=== PATIENT | female | born 1960 | race Caucasian/White ===

== ENCOUNTER 2024-06-19 14:13 | Emergency (ER) | payer MEDICARE, OTHER, SELFPAY ==
[2024-06-19] VITALS (11 sets, daily range): BP systolic 130–172; BP diastolic 77–110; PULSE 65–119; RESP 14–20; TEMP 36.5–36.9; O2SAT 26–99; BMI 23.6
--- NOTE | 2024-06-19 14:26 | ED.RN ---
CONSULTED WITH DR SARABIA REGARDING PT HITTING HEAD, NO BLOOD THINNERS, NO VISIBLE BRUISING OR SWELLING. XRAY OF ARM ONLY AT THIS TIME.
--- NOTE | 2024-06-19 14:35 | RAD_ITS ---
STUDY: X-RAY - RIGHT RADIUS AND ULNA REASON FOR EXAM: Female, 63 years old. FALL, PAIN TECHNIQUE: 2 view(s) of the forearm. COMPARISON: None. FINDINGS: There is no demonstrated soft tissue swelling. Normal visualized radius. Acute nondisplaced oblique fracture of the proximal ulna just distal to the olecranon. RAD/Forearm 2 Views IMPRESSION: Acute nondisplaced oblique fracture of the proximal ulna just distal to the olecranon. Electronically Signed: Vaibhav Mancini MD at 15:14 EST ,
--- NOTE | 2024-06-19 14:35 | RAD_ITS ---
STUDY: X-RAY - RIGHT ELBOW REASON FOR EXAM: Female, 63 years old. FALL, PAIN TECHNIQUE: 2 view(s) of the elbow. COMPARISON: None. FINDINGS: Acute nondisplaced oblique fracture of the proximal ulna just distal to the olecranon. Posterior dislocation of the radiocapitellar joint. The soft tissue structures are unremarkable. RAD/Elbow 2 Views IMPRESSION: Acute nondisplaced oblique fracture of the proximal ulna just distal to the olecranon. Posterior dislocation of the radiocapitellar joint. Electronically Signed: Vaibhav Mancini MD at 15:11 EST ,
--- NOTE | 2024-06-19 14:47 | ED.RN ---
PT XRAY RESULTS PRELIMINARY FROM RADIOLOGY RECIEVED, PT SHANT UPDATED.
--- NOTE | 2024-06-19 15:35 | EDS_ITS ---
HPI History of Present Illness Chief Complaint: Upper Extremity Injury Informant: patient Narrative Narrative: Mechanical fall right elbow injury. Patient [id number]. States came down from [place] to purchase a dog. Fell on concrete when she tripped. He hit her head. No loss conscious. No anticoagulation medications. Now in pain in left wrist. Knee abrasions. Able to ambulate. She follows an orthopedist back home. PFSH PFSH Home Medications ?Medication ?Instructions ?Recorded ?Last Taken ?Type docusate sodium 100 mg capsule 100 mg PO BID #60 caps 06/19/24 Unknown Rx (Colace) oxycodone-acetaminophen 5 mg-325 1 tab PO Q6H PRN PRN Pain 5 days 06/19/24 Unknown Rx mg tablet #20 TABLETS Allergy/AdvReac Type Severity Reaction Status Date / Time No Known Allergies Allergy Verified 06/19/24 14:17 Surgical History H/O tubal ligation Social History Smoking Status: Never smoker ROS ROS ED Constitutional Constitutional ED: Denies chills, fever(s) or sweats ENT ENT ED: Denies sore throat Cardiovascular Cardiovascular: Denies chest pain, leg edema, palpitations or racing heartbeat Respiratory/Chest Respiratory/Chest: Denies cough, dyspnea or dyspnea on exertion Gastrointestinal Gastrointestinal: Denies abdominal pain, diarrhea, nausea or vomiting Genitourinary Genitourinary ED: Denies dysuria, hematuria or urinary frequency Musculoskeletal Musculoskeletal: Reports extremity pain and other Details: Right elbow, left wrist pain ; Denies back pain or neck pain Integumentary Denies rash or wounds Neurologic Neurologic: Reports headache(s); Denies paresthesias or weakness EXAM Physical Exam Const Vital Signs: 06/19/24 14:17 06/19/24 14:46 06/19/24 15:29 Temperature 97.7 F L Temperature Source Oral Pulse Rate 72 70 Respiratory Rate 16 14 Respiratory Effort Normal Respiratory Depth Normal Respiratory Pattern Normal Blood Pressure 159/97 H 150/110 H Blood Pressure Mean 117 123 Pulse Ox 97 98 97 Oxygen Delivery Method Room Air Room Air Room Air Positive well nourished and well developed Constitutional Narrative: GCS 15. General Appearance ED: well developed and NAD HEENT Reports moist mucous membranes normocephalic and atraumatic Eyes General Eye ED: Yes normal appearance of both eyes Neck full ROM Chest Wall inspection of chest normal and palpation of chest normal Chest: Negative for tenderness Resp normal respiratory effort and normal air movement Effort and Inspection: symmetric chest movement; Negative for respiratory distress Cardio regular rate, regular rhythm and no murmurs Peripheral Pulses: pulses 2+ throughout GI normal to inspection, nondistended, normoactive bowel sounds and non-tender Palpation: Negative for guarding or rebound tenderness present Extremity Extremity Narrative: Right upper extremity no shoulder or humerus tenderness. There is swelling to the elbow with deformities. There is ecchymosis at the olecranon. Skin is intact. Soft forearms and compartments. Left upper extremity: No shoulder or elbow tenderness. Mild pain distal radius with no swelling or deformities. No snuffbox tenderness. Lower extremities bilateral negative logroll. Bilateral patellar abrasions out any tenderness. No deformities. Neuro vas intact distally. General Extremety ED: Yes edema and tenderness General Extremity: edema Neuro oriented x3, CN's II-XII intact bilaterally and no sensory deficits noted Sensorium / Orientation: awake and alert Skin no rashes or lesions noted and no wounds MDM MDM MDM Narrative Medical decision making narrative: Interventions / MDM: Differential diagnosis: Diagnosis considered but do not suspect: N/A My EKG interpretation: N/A Imaging independently reviewed and interpreted by myself: Right elbow 3 views: Proximal ulnar fracture nondisplaced, dislocation of the radial head. Also read by radiology. Right forearm 2 views: Proximal ulnar fracture with dislocation radial head. Left wrist 3 views: No acute process. Left knee 2 views: Small joint effusion no fracture. Mild arthritic changes. CT brain: No acute process. Also read by radiology. Post reduction right elbow 2 views: Relocation of radial head. Patient had image placed on a disk as she is from out of town. Discussed sports External documents reviewed: N/A Test considered but not ordered:N/A ED course: Nursing protocol obtain elbow and forearm x-rays of the right side noting fracture dislocation. Head injury left wrist pain. Will add CT brain left wrist x-ray. Last meal was nearly 4 hours ago. Will prep for sedation for reduction of the elbow. She declines any pain medicines as she is not moving the elbow at this time. CT brain negative. Left wrist negative. Left knee negative. Procedure note: Written consent for conscious sedation and right elbow relocation. Timeout performed. nuclear monitoring technician pulse ox capnography. Normal sinus rhythm on the monitor. A total of 60 mg propofol was given 40 with repeat 20 during procedure. Reduce elbow flexion, nylon sleeve, Kerlix dressing for padding at the elbow. 5 inch plaster long-arm splint placed forearm in supination position. Jono wrap to secure. Patient tolerated procedure well. Reduction x-rays improved alignment. Patient from out of town. Images placed on a disk. She is going back to [place], she will try to follow-up with her PCP and orthopedics there to try to refill pain medicines if needed. She has an orthopedist back in [place]. Re-evaluation: stable Disposition discussed with patient/family/significant other: Patient and mother Case discussed with consulting clinician: N/A This note was generated with [employer] dictation software. It may contain incorrect words, spelling, and punctuation that were not noted in checking the note before signing. Radiography Diagnostic Testing: Clinical Impression(s) from Imaging Studies Elbow X-Ray 06/19/24 14:35 IMPRESSION: Acute nondisplaced oblique fracture of the proximal ulna just distal to the olecranon. Posterior dislocation of the radiocapitellar joint. Electronically Signed: Vaibhav Mancini MD at 15:11 EST , Forearm X-Ray 06/19/24 14:35 IMPRESSION: Acute nondisplaced oblique fracture of the proximal ulna just distal to the olecranon. Electronically Signed: Vaibhav Mancini MD at 15:14 EST , Procedures Procedural Sedation 1 (Initial Baseline): Consent Signed: Yes Any Problems With Anesthesia: No You/Your family experience fever (hyperthermia) w/anesthesia: No Sedation medication: Propofol Dose: 60 Route: IV Maliampati Score: Class I ASA Classification: II Discharge Plan Triage Chief Complaint: Upper Extremity Injury ED Provider: Alexander Bourgeois Dx/Rx/DC Orders Clinical Impression: Fall, Closed fracture of right elbow, Dislocation of right elbow, CHI (closed head injury), Left wrist sprain, Abrasion of knee, bilateral Instructions: ED Elbow Dislocation, ED Fracture, Upper Extremity, ED Head Injury (Adult) Prescriptions: New oxycodone-acetaminophen 5-325 mg tablet 1 tab PO Q6H PRN PRN (Reason: Pain) 5 Days Qty: 20 0RF docusate sodium [Colace] 100 mg capsule 100 mg PO BID Qty: 60 0RF Primary Care Provider: Care Physician,No Primary Referrals: Care Physician,No Primary [Primary Care Provider] - Activity Restrictions/Additional Instructions: Your right elbow with nondisplaced proximal olecranon fracture and dislocation of the radial head. To reduce, maintain the splint. Sling for comfort. Pain medicines for comfort. Stool softeners to prevent constipation. Head CT negative. Left wrist x-ray negative. Left knee x-ray negative. Make appointment with your orthopedic doctor back home. If you are with mother in [place], follow-up with a primary care or orthopedics for continued pain control if needed. Print Language: Albanian Disposition Disposition: Home, Self Care Discharge Date/Time: 06/19/24 18:17
--- NOTE | 2024-06-19 15:55 | RAD_ITS ---
INDICATION: injury EXAMINATION/TECHNIQUE: X-RAY - LEFT XR Knee 1 or 2 Views COMPARISON: None. FINDINGS: No acute fracture or malalignment. Mild, medial compartment predominant, tricompartmental joint space narrowing and osteophytosis. Small suprapatellar joint effusion. The soft tissues are unremarkable. RAD/Knee 1 or 2 Views IMPRESSION: Small suprapatellar joint effusion. No fracture or malalignment. Electronically Signed: Jaskaran Patel MD at 16:51 EST ,
--- NOTE | 2024-06-19 15:55 | RAD_ITS ---
INDICATION: injury EXAMINATION/TECHNIQUE: X-RAY - LEFT XR Wrist Min 3 Views COMPARISON: None. FINDINGS: No acute fracture or malalignment. No blastic or lytic lesions. Mild scattered degenerative changes. The soft tissues are unremarkable. RAD/Wrist min 3 Views IMPRESSION: No acute radiographic abnormalities. Electronically Signed: Jaskaran Patel MD at 16:52 EST ,
--- NOTE | 2024-06-19 16:02 | CT_ITS ---
EXAMINATION : Head CT w/out contrast HISTORY : head injury COMPARISON : None. TECHNIQUE : Multiple contiguous axial images were obtained from the skull base to the vertex without intravenous contrast. A radiation dose optimization technique was used for this scan. FINDINGS : The ventricles and sulci are normal in size. There is no evidence for acute intracranial hemorrhage, mass effect, or midline shift. There is no extra-axial fluid collection. There is normal murrieta-white differentiation, without CT evidence of acute ischemia or infarct. The skull base and calvarium are unremarkable. The orbits are unremarkable. The paranasal sinuses are clear. The mastoid air cells are well-aerated. The soft tissues are unremarkable. CT/Brain/Head without Contrast IMPRESSION: No acute intracranial abnormality. Electronically Signed: Jaskaran Patel MD at 16:22 EST ,
[2024-06-19] MEDS: Propofol 200 MG/20 ML Vial IV BOLUS (17:02)
--- NOTE | 2024-06-19 17:03 | RAD_ITS ---
INDICATION: post reduction EXAMINATION/TECHNIQUE: X-RAY - RIGHT XR Elbow 2 Views COMPARISON: Prior study dated: 06/19/2024 FINDINGS: Overlying cast limits bony detail. Status post closed reduction and splinting for previously described ulnar fracture with improved alignment. RAD/Elbow 2 Views IMPRESSION: Status post closed reduction and splinting for previously described ulnar fracture with improved alignment. No other change from prior. Electronically Signed: Jaskaran Patel MD at 17:43 EST ,
[2024-06-19] MEDS: Ondansetron 4 MG/2 ML Vial IV (17:14)
[2024-06-19] MEDS: Morphine 4 MG/ML Syringe IV (17:14)
== END 2024-06-19 18:17 | disposition home or self-care (01) ==
PROVIDERS: Emergency Provider Emergency Medicine; Visit Provider Emergency Medicine
DX: S52.024A Nondisplaced fracture of olecranon process without intraarticular extension of right ulna, initial encounter for closed fracture (principal); S53.024A Posterior dislocation of right radial head, initial encounter; S63.502A Unspecified sprain of left wrist, initial encounter; S80.212A Abrasion, left knee, initial encounter; S80.211A Abrasion, right knee, initial encounter; S09.90XA Unspecified injury of head, initial encounter; W01.0XXA Fall on same level from slipping, tripping and stumbling without subsequent striking against object, initial encounter; M17.12 Unilateral primary osteoarthritis, left knee
CPT/HCPCS: 24600; 70450; 73070; 73090; 73110; 73560; 96374; 96375; 99152; 99285; A4216; J2405